=== PATIENT | female | born 1985 | race American Indian/Alaskan Native ===

== ENCOUNTER 2022-06-20 09:39 | Outpatient (CLI) | payer MEDICAID ==
[2022-06-20 10:31] LABS: ABG Base Excess -0.2 mmol/L (-2.0-3.0); ABG HCO3 23.6 mmol/L (20.0-26.0); ABG Methemoglobin 0.5 % (0.0-1.5); ABG Oxygen Saturation 97.2 % (95.0-99.0); ABG PCO2 36.2 mm Hg; ABG PH 7.433 pH Units (7.350-7.450); ABG PO2 90.1 mm Hg (80.0-90.0)
[2022-06-20 10:38] LABS: Hematocrit 41.3 % (30.3-42.9); Hemoglobin 13.1 gm/dl (10.1-14.3); Mean Corpuscular HGB Conc 32 % (30-34); Mean Corpuscular Volume 75 fl (79-97); Platelet Count 434 K/mm3 (140-440); Red Blood Count 5.55 M/mm3 (3.65-5.03); Red Cell Distribution Width 15.3 % (13.2-15.2)
[2022-06-20 10:57] LABS: Alanine Aminotransferase 18 units/L (7-56); Albumin 4.5 g/dL (3.9-5); Blood Urea Nitrogen 7 mg/dL (7-17); Calcium 9.4 mg/dL (8.4-10.2); Chol/HDL Ratio 5.21 %; HDL Cholesterol 38 mg/dL (40-59); Hemolysis Index 2; LDL Cholesterol,Direct 143 mg/dL (50-130)
[2022-06-20 11:13] LABS: BUN/Creatinine Ratio 14
--- NOTE | 2022-06-21 08:04 | XRay Report ---
CHEST 2 VIEWS INDICATION / CLINICAL INFORMATION: [id number]. COMPARISON: None available. FINDINGS: SUPPORT DEVICES: None. HEART / MEDIASTINUM: No significant abnormality. LUNGS / PLEURA: No significant pulmonary or pleural abnormality. No pneumothorax. ADDITIONAL FINDINGS: No significant additional findings. IMPRESSION: 1. No acute findings. Signer Name: Lucien Judd Jr, MD Signed: 06/21/2022 8:00 AM Workstation Name: [id number]
== END 2022-06-20 09:40 | disposition home or self-care (01) ==
LOC: XRAY 09:39
PROVIDERS: ATTEND Internal Medicine
DX: J45.909 Unspecified asthma, uncomplicated (principal); E78.00 Pure hypercholesterolemia, unspecified; F32.A Depression, unspecified; K21.9 Gastro-esophageal reflux disease without esophagitis; G43.909 Migraine, unspecified, not intractable, without status migrainosus
CPT/HCPCS: 36415; 36600; 71046; 80053; 80061; 82785; 82803; 84436; 84443; 85027